=== PATIENT | female | born 1980 | race Caucasian/White ===

== ENCOUNTER 2021-01-12 00:45 | Emergency (ER) | payer OTHER ==
[~2021-01-12] VITALS: Ht 162.6 cm; Wt 56.2 kg
[2021-01-12 01:21] LABS: ABSOLUTE BASOPHILS 0.1 thou/uL (0.0-0.2); ABSOLUTE EOSINOPHILS 0.5 thou/uL (0.0-0.7); ABSOLUTE MONOCYTES 0.5 thou/uL (0.0-1.2); ABSOLUTE NEUTROPHILS 2.9 thou/uL (1.6-8.1); BASOPHILS 0.9 %; EOSINOPHILS 8.6 %; HEMATOCRIT 38.1 % (37.0-47.0); HEMOGLOBIN 12.8 gm/dL (12.0-15.0); MCH 31.5 pg (26.0-34.0); MCHC 33.5 g/dL (28.0-37.0); MCV 94.1 fL (80.0-100.0); MONOCYTES 8.3 %; MPV 7.9 fl. (7.2-11.1); NUCLEATED RBCS 0 /100WBC; PLATELET COUNT* 236 thou/uL (150-400); POLYS 48.2 %; RBC 4.05 mil/uL (4.20-5.00); RDW-CV 12.5 % (10.5-14.5)
[2021-01-12] MEDS ORDERED: LEVO-T50 MCG PO (01:21)
[2021-01-12 01:26] LABS: CALCIUM 8.7 mg/dL (8.5-10.1); CREATININE 0.7 mg/dL (0.6-1.3); POTASSIUM 3.5 mmol/L (3.5-5.1)
[2021-01-12 01:30] LABS: ALBUMIN 3.5 g/dL (3.4-5.0); TOTAL BILIRUBIN 0.6 mg/dL (<0.1-1.0)
[2021-01-12 01:37] LABS: URINE BILIRUBIN NEGATIVE (Negative); URINE BLOOD NEGATIVE (Negative); URINE CLARITY CLEAR; URINE COLOR YELLOW; URINE GLUCOSE-RANDOM NEGATIVE (Negative); URINE KETONES NEGATIVE (Negative); URINE LEUKOCYTES-REFLEX 1+ (Negative); URINE NITRITE-REFLEX NEGATIVE (Negative); URINE PROTEIN NEGATIVE (Negative); URINE SPECIFIC GRAVITY 1.015 (1.005-1.030); URINE UROBILINOGEN 0.2 E.U./dl (0.2-1.0)
[2021-01-12 01:46] LABS: AMP/METHAMP Negative (Negative); BARBITURATES Negative (Negative); BENZODIAZEPINES Negative (Negative); COCAINE Negative (Negative); METHADONE Negative (Negative); OPIATES POSITIVE (Negative); PCP Negative (Negative); THC POSITIVE (Negative)
[2021-01-12 01:59] LABS: CASTS None Seen /LPF (None Seen); SQUAMOUS >10 Many /LPF (0-3); URINE WBC-REFLEX 6-15 Few /HPF (0-5)
[2021-01-12 02:00] LABS: BACTERIA-REFLEX 1-9 Few /HPF (None Seen); CRYSTALS None Seen /LPF (None Seen); URINE RBC None Seen /HPF (0-2)
[2021-01-12] MEDS ORDERED: HYDROXYZINE HCL25 M2 PO (03:58)
[2021-01-12 04:07] VITALS: BP 115/84
--- NOTE | 2021-01-12 09:31 | EKG ---
[place] [address] ELECTROCARDIOGRAM REPORT Name: JOSEJESIREJI Nancy Room: [facility]#: [id number] Admission: 01/12/21 Attend Phys: Discharge: 01/12/21 Date of : 82 Date of Service: 01/12/21 0056 Report #: [id number] THIS REPORT FOR: //name// [facility] ED Test Date: 2021-01-12 Test Time: 00:56:25 Pat Name: REJI GARCIA Department: Room: Gender: F Vp Integration: [facility] : 1980 Requested By: Ana M Heard Order Number: [id number] MD: Juvenal Will Measurements Intervals [place] Rate: 79 P: 86 FL: 138 QRS: 90 QRSD: 88 T: 53 QT: 366 QTc: 420 Interpretive Statements Sinus rhythm Borderline right axis deviation Minimal ST depression, anterolateral leads No previous ECG available for comparison Electronically Signed On 01-12-2021 9:31:08 CDT by Juvenal Will [email or web address] <ELECTRONICALLY SIGNED> By: Billy Will MD, [facility] 01/12/21 0931 0056 0056 Billy Will MD, [facility] /EPI
== END 2021-01-12 04:07 | disposition home or self-care (01) ==
LOC: M.ERS 00:45
PROVIDERS: Emergency Medicine
DX: F41.9 Anxiety disorder, unspecified (principal); E03.9 Hypothyroidism, unspecified; Z79.899 Other long term (current) drug therapy; Z91.018 Allergy to other foods; Z87.891 Personal history of nicotine dependence